=== PATIENT | female | born 1965 | race Caucasian/White ===

== ENCOUNTER 2025-02-10 14:09 | Outpatient (RCR) | payer OTHER, SELFPAY | END 2025-03-27 09:46 | disposition home or self-care (01) | LOC: HO.OT 14:09 | PROVIDERS: PCP Internal Medicine; Visit Provider Emergency Medicine | DX: I89.0 Lymphedema, not elsewhere classified (principal) | CPT/HCPCS: 97140; 97166; 97535 ==